=== PATIENT | female | born 1995 | race Caucasian/White ===

== ENCOUNTER 2020-01-27 17:09 | Inpatient (IN) | payer MEDICAID, SELFPAY ==
[~2020-01-27] VITALS: Ht 160 cm; Wt 77.1 kg
[~2020-01-27 17:09] MED LIST: DEXAMETHASONE 4 MG/ML VIAL ONE; LIDOCAINE 2% 100 MG/5 ML SYR IVP ONE; MORPHINE PRES FREE 10 MG/10 ML AMP IV ONE; OXYTOCIN 10 UNITS/ML VIAL ONE; ceFAZolin 1,000 MG VIAL ONE
[2020-01-27] MEDS ORDERED: PROMETHAZINE 25 MG/ML VIAL IVP PRN (17:25)
[2020-01-27] MEDS ORDERED: METHYLERGONOVINE 0.2 MG/ML AMP IM PRN (17:25)
[2020-01-27] MEDS ORDERED: NALBUPHINE 10 MG/ML AMP IVP PRN (17:25)
[2020-01-27] MEDS ORDERED: CARBOPROST 250 MCG/ML AMP IM PRN (17:25)
[2020-01-27] MEDS ORDERED: MORPHINE SULFATE 5 MG/ML VIAL IVP PRN (17:45)
[2020-01-27] MEDS ORDERED: ONDANSETRON 4 MG/2 ML VIAL IVP PRN (17:45)
[2020-01-27] MEDS ORDERED: OXYTOCIN 20 UNITS in LACTATED RINGERS 1,000 ML IV SCH (17:50)
[2020-01-27] MEDS ORDERED: AMPICILLIN 2,000 MG VIAL ONE (18:09)
[2020-01-27 18:45] LABS: BASOPHILS % (AUTO) 0.3 % (0.0-2.0); EOSINOPHILS % (AUTO) 0.2 % (0.0-4.0); HEMATOCRIT 30.6 % (36-48); HEMOGLOBIN 10.5 g/dL (12.0-16.0); LYMPHOCYTES # (AUTO) 1.4 K/uL (2.5-16.5); LYMPHOCYTES % (AUTO) 17.8 % (20.5-51.1); MEAN CORPUSCULAR HEMOGLOBIN 32 pg (27-31); MEAN CORPUSCULAR HGB CONC 34 g/dL (33-37); MONOCYTES # (AUTO) 0.5 K/uL (0.8-1.0); MONOCYTES % (AUTO) 6.3 % (1.7-9.3); NEUTROPHILS % (AUTO) 75.4 % (42.2-75.2); PLATELET COUNT (AUTO) 202 K/uL (140-450); RED BLOOD CELL COUNT(AUTO) 3.29 MIL/uL (4.20-5.40); RED CELL DISTRIBUTION WIDTH 14.1 % (11.6-13.7)
[2020-01-27 18:56] VITALS: BP 121/71
[2020-01-27 19:00] LABS: APPEARANCE,URINE CLEAR (CLEAR); BILIRUBIN,URINE NEGATIVE (NEGATIVE); BLOOD, URINE NEGATIVE (NEGATIVE); COLOR,URINE YELLOW (YELLOW); LEUKOCYTE ESTERASE ,URINE NEGATIVE (NEGATIVE); NITRITE, URINE NEGATIVE (NEGATIVE); UGLUCOSE NEGATIVE (NEGATIVE)
[2020-01-27 19:08] LABS: ALBUMIN 2.7 g/dL (3.4-5.0); ANION GAP 12.9 (8-16); CARBON DIOXIDE 23.9 mmol/L (21-32); CREATININE 0.6 mg/dL (0.6-1.3); POTASSIUM 3.8 mmol/L (3.5-5.1); TOTAL BILIRUBIN 0.4 mg/dL (0.0-1.0)
[2020-01-27] MEDS ORDERED: AMPICILLIN 2,000 MG in NACL 0.9% 100 ML IV SCH (20:00)
[2020-01-27] MEDS ORDERED: AMPICILLIN 1,000 MG VIAL ONE (21:53)
[2020-01-27] MEDS: AMPICILLIN 1,000 MG in NACL 0.9% 50 ML IV SCH (22:04)
[2020-01-28] MEDS: MISOPROSTOL 25 MCG TAB VG SCH ×3 (00:05→16:32)
[2020-01-28] MEDS ORDERED: AMPICILLIN 1,000 MG VIAL ONE ×6 (02:05→22:33)
[2020-01-28] MEDS: AMPICILLIN 1,000 MG in NACL 0.9% 50 ML IV SCH ×4 (02:12→17:57)
--- NOTE | 2020-01-28 09:11 | NUR ---
PATIENT HAS BEEN SCREENED AND CATEGORIZED LOW NUTRITION RISK. PATIENT WILL BE SEEN WITHIN 7 DAYS OF ADMISSION. 02/03/[address]
[2020-01-29] MEDS: MISOPROSTOL 25 MCG TAB VG SCH (00:01)
[2020-01-29] MEDS ORDERED: AMPICILLIN 1,000 MG VIAL ONE ×5 (06:53→20:47)
[2020-01-29] MEDS ORDERED: OXYTOCIN 20 UNITS/LR PREMIX 1,000 ML IV ONE (10:13)
[2020-01-29] MEDS: AMPICILLIN 1,000 MG in NACL 0.9% 50 ML IV SCH ×2 (11:05→16:04)
[2020-01-29] MEDS: LACTATED RINGERS 1,000 ML IV SCH (17:35)
[2020-01-30] MEDS ORDERED: AMPICILLIN 1,000 MG VIAL ONE ×4 (00:39→22:29)
[2020-01-30] MEDS: AMPICILLIN 1,000 MG in NACL 0.9% 50 ML IV SCH ×3 (07:34→18:33)
[2020-01-30] MEDS ORDERED: OXYTOCIN 20 UNITS/LR PREMIX 1,000 ML IV ONE (13:19)
[2020-01-30] MEDS ORDERED: ROPIVACAINE 0.2%/NS PREMIX 200 ML EPI ONE (17:01)
[2020-01-30] MEDS: LACTATED RINGERS 1,000 ML IV SCH (17:51)
[2020-01-31] MEDS ORDERED: CITRIC ACID/SODIUM CITRATE 30 ML UDC PO SCH (00:30)
[2020-01-31] MEDS ORDERED: ceFAZolin 1,000 MG VIAL ONE (02:44)
[2020-01-31] MEDS ORDERED: MORPHINE PRES FREE 10 MG/10 ML AMP IV ONE (03:13)
[2020-01-31] MEDS ORDERED: LIDOCAINE/EPI MPF 2%1:200000 10 ML VIAL INJ ONE (03:19)
[2020-01-31] MEDS ORDERED: DEXAMETHASONE 4 MG/ML VIAL ONE (03:26)
[2020-01-31] MEDS ORDERED: BLOOD GLUCOSE MONITORING 1 DEV DEV FS SCH (03:35)
[2020-01-31] MEDS ORDERED: MEPERIDINE 25 MG/ML SYR IVP PRN (03:35)
[2020-01-31] MEDS ORDERED: ONDANSETRON 4 MG/2 ML VIAL IVP PRN ×2 (03:35)
[2020-01-31] MEDS ORDERED: LACTATED RINGERS 1,000 ML IV SCH (03:35)
[2020-01-31] MEDS ORDERED: NALOXONE 0.4 MG/ML VIAL IVP PRN ×3 (03:35)
[2020-01-31] MEDS ORDERED: HYDROmorphone 1 MG/ML AMP IVP PRN (03:35)
[2020-01-31] MEDS ORDERED: diphenhydrAMINE 50 MG/ML VIAL IVP PRN ×2 (03:35)
[2020-01-31] MEDS ORDERED: OXYTOCIN 20 UNITS in LACTATED RINGERS 1,000 ML IV SCH (03:35)
[2020-01-31] MEDS: OXYTOCIN 20 UNITS in LACTATED RINGERS 1,000 ML IV SCH ×3 (03:45→20:29)
[2020-01-31] MEDS ORDERED: METHYLERGONOVINE 0.2 MG/ML AMP IM PRN (03:45)
[2020-01-31] MEDS ORDERED: MEASLES, MUMPS, AND RUBELLA 1 VIAL SQVAC PRN (03:45)
[2020-01-31] MEDS ORDERED: OXYTOCIN 20 UNITS/LR PREMIX 1,000 ML IV ONE (04:24)
[2020-01-31] MEDS: HYDROmorphone PFS 2 MG/ML SYR ONE ×2 (04:25→04:35)
[2020-01-31] MEDS ORDERED: MISOPROSTOL 200 MCG TAB ONE (04:39)
[2020-01-31] MEDS ORDERED: CARBOPROST 250 MCG/ML AMP IM ONE (04:39)
[2020-01-31] MEDS ORDERED: CARBOPROST 250 MCG/ML AMP IM SCH (05:09)
[2020-01-31] MEDS ORDERED: MISOPROSTOL 25 MCG TAB RC SCH (05:09)
[2020-01-31] MEDS ORDERED: MISOPROSTOL 200 MCG TAB RC SCH (05:24)
[2020-01-31] MEDS: KETOROLAC 30 MG/ML VIAL IM/IVP SCH ×3 (06:18→18:44)
[2020-01-31] MEDS ORDERED: bisacodyL 10 MG SUPP RC SCH (09:00)
[2020-01-31] MEDS ORDERED: PROMETHAZINE 25 MG/ML VIAL IVP PRN (18:45)
[2020-02-01] MEDS: KETOROLAC 30 MG/ML VIAL IM/IVP SCH ×2 (00:50→06:00)
[2020-02-01 06:43] LABS: BASOPHILS % (AUTO) 0.2 % (0.0-2.0); EOSINOPHILS % (AUTO) 0.2 % (0.0-4.0); HEMATOCRIT 28.1 % (36-48); HEMOGLOBIN 9.5 g/dL (12.0-16.0); LYMPHOCYTES # (AUTO) 2.2 K/uL (2.5-16.5); LYMPHOCYTES % (AUTO) 18.9 % (20.5-51.1); MEAN CORPUSCULAR HEMOGLOBIN 32 pg (27-31); MEAN CORPUSCULAR HGB CONC 34 g/dL (33-37); MONOCYTES # (AUTO) 0.8 K/uL (0.8-1.0); MONOCYTES % (AUTO) 6.7 % (1.7-9.3); NEUTROPHILS # (AUTO) 8.5 K/uL (1.8-7.7); PLATELET COUNT (AUTO) 176 K/uL (140-450); RED BLOOD CELL COUNT(AUTO) 2.99 MIL/uL (4.20-5.40); WHITE BLOOD COUNT (AUTO) 11.5 K/uL (4.8-10.8)
[2020-02-01] MEDS: oxyCODONE/APAP 5/325 MG 1 TAB TAB PO PRN ×2 (14:41→20:53)
[2020-02-02] MEDS: oxyCODONE/APAP 5/325 MG 1 TAB TAB PO PRN ×2 (03:47→11:58)
== END 2020-02-02 15:15 | disposition home or self-care (01) | DRG 540 ==
LOC: MLD 17:09 → MFCC 01-31 05:50
PROVIDERS: ADMIT Obstetrics & Gynecology; ATTEND Obstetrics & Gynecology
PROC: 10D00Z1 Extraction of Products of Conception, Low, Open Approach (ICD-10-PCS; principal; 2020-01-31 03:00)
DX: O63.9 Long labor, unspecified (principal); O61.9 Failed induction of labor, unspecified; Z20.828 Contact with and (suspected) exposure to other viral communicable diseases; Z37.0 Single live birth; Z3A.39 39 weeks gestation of pregnancy; O99.824 Streptococcus B carrier state complicating childbirth
CPT/HCPCS: 36415; 51702; 59200; 76815; 80053; 81003; 85025; 86592; 86886; 86900; 86901; 87081; J0290; J0690; J1100; J1170; J1200; J1885; J2001; J2210; J2270; J2590; J2795; J3490; J7060; J7120